=== PATIENT | male | born 1975 | race Caucasian/White ===

== ENCOUNTER 2017-05-11 08:46 | Observation (INO) ==
[2017-05-11] MEDS ORDERED: Nitroglycerin 0.4 MG TAB.SUBL SL ONE (08:57)
[2017-05-11] MEDS ORDERED: Aspirin 81 MG TAB.CHEW PO ONE (08:57)
[2017-05-11 09:32] LABS: Basophils # 0.1 K/mcL (0.0-0.2); Basophils % 0.7 %; Eosinophils # 0.2 K/mcL (0.0-0.6); Eosinophils % 2.7 %; Hematocrit 44.7 % (37.5-50.1); Hemoglobin 14.3 g/dL (12.9-16.9); Immature Granulocytes % 0.4 % (0-4); Lymphocytes # 2.3 K/mcL (0.6-4.6); Lymphocytes % 31.3 %; Mean Corpuscular Hemoglobin 27.1 pg (28.0-33.3); Mean Corpuscular Volume 84.8 fL (83.0-100.0); Mean Platelet Volume 9.8 fL (9.4-12.4); Monocytes # 0.7 K/mcL (0.0-1.3); Monocytes % 8.8 %; Neutrophils # 4.1 K/mcL (1.6-8.9); Platelet Count 260 K/mcL (140-400); Red Blood Count 5.27 M/mcL (4.19-5.50); Red Cell Distribution Width 12.7 % (11.5-14.5); Segmented Neutrophils % 56.1 %
[2017-05-11 09:38] LABS: Calcium 9.6 mg/dL (8.6-10.3); Carbon Dioxide 27 mEq/L (23-29); Chloride 105 mEq/L (98-107); Potassium 3.9 mEq/L (3.5-5.1); Sodium 140 mEq/L (136-145)
[2017-05-11 09:43] LABS: BUN/Creatinine Ratio 22 (6-26); Blood Urea Nitrogen 22 mg/dL (6-20); Glucose 93 mg/dL (70-105); Osmolality,Calculated 293 (280-300); eGFR For African Americans > 60 (> 60); eGFR For Non-African Americans > 60 (> 60)
[2017-05-11 09:46] LABS: INR 1.1; Prothrombin Time 11.6 Seconds (9.4-12.1)
[2017-05-11 09:49] LABS: Activated Partial Thrombo Time 33.1 Seconds (26.0-36.0)
--- NOTE | 2017-05-11 09:56 | Emergency Department Note ---
Disposition Clinical Impression: Chest pain, rule out acute myocardial infarction Disposition: Admitted As Inpatient Condition: Fair Referrals: Nehemiah Abdi DO [Primary Care Provider] - Forms: ED Satisfaction Letter Time of Disposition: 10:49 Chest Pain HPI - General Chief Complaint: ED Chest Pain Stated Complaint: chest heaviness, L arm pain Time Seen by Provider: 05/11/17 08:56 Source: patient Limitations: no limitations Vital Signs Reviewed: Yes Nursing Notes Reviewed: Yes - History of Present Illness HPI Narrative: Alert and oriented and nontoxic-appearing 42-year-old male presents for evaluation of epigastric, substernal, and left-sided chest "pressure" that radiates into the left upper arm. Symptoms began 3 days ago and have been intermittent since. He describes this pressure as a sensation of heaviness. He denies any pain with inspiration. He denies any shortness of breath, nausea , vomiting, or diaphoresis. He denies any cough, sputum, or hemoptysis. He denies any lower extremity pain or swelling. He denies any known personal cardiac history but states a strong familial cardiac history on his father's side. He denies any known aggravating or alleviating factors for this pain. Pt complaint: chest pain Onset (ago): day(s) (3) Duration: intermittent Pain Location: substernal, left chest, epigastric Severity: mild Severity scale (1-10): 2 Quality: heaviness Pain Radiation: LUE Improves with: nothing Worsens with: nothing Associated symptoms: Denies: nausea, vomiting, diaphoresis, dyspnea, syncope, palpitations, fever, cough, leg swelling Treatments prior to arrival chest pain: none - Related Data Home Medications Medication Instructions Recorded Confirmed Lisinopril [Zestril] 10 mg PO DAILY 05/11/17 05/11/17 Omeprazole [PriLOSEC] 20 mg PO BIDAC 05/11/17 05/11/17 Allergies Allergy/AdvReac Type Severity Reaction Status Date / Time nut - unspecified [nut] Allergy Rash Verified 05/11/17 08:54 shrimp Allergy Rash Verified 05/11/17 08:54 All systems ED: reviewed and negative except as stated. Constitutional: Denies: fever, chills, weakness, weight change Eyes: Denies: eye pain, eye discharge, vision change ENT ED: Denies: ear pain, throat pain, dental pain, hearing loss, epistaxis, congestion, dysphagia Cardiovascular: Reports: as per HPI, chest pain. Denies: palpitations, dyspnea on exertion, edema, syncope Respiratory: Denies: cough, dyspnea, wheezes, hemoptysis, stridor Gastrointestinal: Denies: abdominal pain, nausea, vomiting, diarrhea, constipation, hematemesis, melena, hematochezia Genitourinary: Denies: urgency, dysuria, frequency, hematuria Musculoskeletal: Denies: back pain, neck pain, arthralgia, myalgia Integumentary: Denies: rash, abrasion, lesions Neurological: Denies: headache, weakness, numbness, paresthesias, confusion, abnormal gait, vertigo Psychiatric: Denies: anxiety, depression, suicidal thoughts, homicidal thoughts , auditory hallucinations, visual hallucinations Endocrine: Denies: fatigue Hematological/Lymphatic: Denies: easy bleeding, easy bruising Allergic/Immunologic: Denies: facial swelling, urticaria Chest Pain PMH - Past Medical History Medical history: Reports: GERD, hypertension Psychiatric history: Reports: no psych history - Social History Smoking Status: Never smoker Alcohol use: Reports: rarely Drug use: Reports: none Physical Exam - General Limitations: no limitations General appearance: alert, in no apparent distress - Head Head exam: atraumatic, normocephalic, normal inspection - Eye Eye exam: Present: normal appearance, PERRL, EOMI. Absent: nystagmus - ENT ENT exam: mucous membranes moist - Neck Neck exam: Present: normal inspection, full ROM, trachea midline - Chest Chest inspection: Present: normal inspection, symmetric chest wall rise. Absent : tenderness - Respiratory Respiratory exam: Present: normal lung sounds bilaterally. Absent: respiratory distress, wheezes, stridor, accessory muscle use, prolonged expiratory phase - Cardiovascular Cardiovascular exam: Present: regular rate, normal rhythm, normal heart sounds - Abdominal Exam Abdominal exam: Present: soft, Non-Tender, normal bowel sounds - Extremities Exam Extremities exam: Present: normal inspection, full ROM, tenderness. Absent: pedal edema - Neurological Exam Neurological exam: Present: alert, oriented X3 - Psychiatric Psychiatric exam: Present: normal affect, normal mood - Skin Skin exam: Present: warm, dry, intact, normal color Course Course Narrative: 1048: I spoke with Dr. Saha of the hospital service. Dr. Saha has accepted the patient for admission to their care for further evaluation and treatment of the patient's complaint of chest pain. - Reevaluation(s) Reevaluation #1: The patient stated complete resolution of chest pain and pressure after the administration of a single nitroglycerin tablet. Time: 09:58 Vital Signs Temperature 97.8 F 05/11/17 08:49 Pulse Rate 64 05/11/17 08:49 Respiratory Rate 18 05/11/17 08:49 Blood Pressure 133/93 05/11/17 08:49 O2 Sat by Pulse Oximetry 100 05/11/17 08:49 Temperature 97.8 F 05/11/17 08:49 Pulse Rate 64 05/11/17 08:49 Respiratory Rate 18 05/11/17 08:49 Blood Pressure 133/93 05/11/17 08:49 O2 Sat by Pulse Oximetry 100 05/11/17 08:49 Oxygen Delivery Oxygen Delivery Room Air Chest Pain - Medical Records Medical records reviewed: Yes I reviewed the patient's medical records. - Lab Data Lab results reviewed: Yes I reviewed the patient's lab results. Lab results narrative: Lab Results 05/11/17 05/11/17 05/11/17 Range/Units 09:07 09:07 09:07 WBC 7.4 (4.3-11.1) K/mcL RBC 5.27 (4.19-5.50) M/mcL Hgb 14.3 (12.9-16.9) g/dL Hct 44.7 (37.5-50.1) % MCV 84.8 (83.0-100.0) fL MCH 27.1 L (28.0-33.3) pg MCHC 32.0 (31.6-35.5) g/dL RDW 12.7 (11.5-14.5) % Plt Count 260 (140-400) K/mcL MPV 9.8 (9.4-12.4) fL Immature Gran % 0.4 (0-4) % Seg Neutrophils % 56.1 % Lymphocytes % 31.3 % Monocytes % 8.8 % Eosinophils % 2.7 % Basophils % 0.7 % Neutrophils # 4.1 (1.6-8.9) K/mcL Lymphocytes # 2.3 (0.6-4.6) K/mcL Monocytes # 0.7 (0.0-1.3) K/mcL Eosinophils # 0.2 (0.0-0.6) K/mcL Basophils # 0.1 (0.0-0.2) K/mcL PT 11.6 (9.4-12.1) Seconds INR 1.1 APTT 33.1 (26.0-36.0) Seconds Sodium 140 (136-145) mEq/L Potassium 3.9 (3.5-5.1) mEq/L Chloride 105 (98-107) mEq/L Carbon Dioxide 27 (23-29) mEq/L BUN 22 H (6-20) mg/dL Creatinine 0.98 (0.70-1.30) mg/dL Est GFR ( Amer) > 60 (> 60) Est GFR (Non-Af Amer) > 60 (> 60) BUN/Creatinine Ratio 22 (6-26) Glucose 93 (70-105) mg/dL Calculated Osmolality 293 (280-300) Calcium 9.6 (8.6-10.3) mg/dL Troponin I (< 0.04) ng/mL 05/11/17 Range/Units 09:07 WBC (4.3-11.1) K/mcL RBC (4.19-5.50) M/mcL Hgb (12.9-16.9) g/dL Hct (37.5-50.1) % MCV (83.0-100.0) fL MCH (28.0-33.3) pg MCHC (31.6-35.5) g/dL RDW (11.5-14.5) % Plt Count (140-400) K/mcL MPV (9.4-12.4) fL Immature Gran % (0-4) % Seg Neutrophils % % Lymphocytes % % Monocytes % % Eosinophils % % Basophils % % Neutrophils # (1.6-8.9) K/mcL Lymphocytes # (0.6-4.6) K/mcL Monocytes # (0.0-1.3) K/mcL Eosinophils # (0.0-0.6) K/mcL Basophils # (0.0-0.2) K/mcL PT (9.4-12.1) Seconds INR APTT (26.0-36.0) Seconds Sodium (136-145) mEq/L Potassium (3.5-5.1) mEq/L Chloride (98-107) mEq/L Carbon Dioxide (23-29) mEq/L BUN (6-20) mg/dL Creatinine (0.70-1.30) mg/dL Est GFR ( Amer) (> 60) Est GFR (Non-Af Amer) (> 60) BUN/Creatinine Ratio (6-26) Glucose (70-105) mg/dL Calculated Osmolality (280-300) Calcium (8.6-10.3) mg/dL Troponin I < 0.03 (< 0.04) ng/mL Result diagrams: 05/11/17 09:07 05/11/17 09:07 Lab Results 05/11/17 05/11/17 05/11/17 Range/Units 09:07 09:07 09:07 WBC 7.4 (4.3-11.1) K/mcL RBC 5.27 (4.19-5.50) M/mcL Hgb 14.3 (12.9-16.9) g/dL Hct 44.7 (37.5-50.1) % MCV 84.8 (83.0-100.0) fL MCH 27.1 L (28.0-33.3) pg MCHC 32.0 (31.6-35.5) g/dL RDW 12.7 (11.5-14.5) % Plt Count 260 (140-400) K/mcL MPV 9.8 (9.4-12.4) fL Immature Gran % 0.4 (0-4) % Seg Neutrophils % 56.1 % Lymphocytes % 31.3 % Monocytes % 8.8 % Eosinophils % 2.7 % Basophils % 0.7 % Neutrophils # 4.1 (1.6-8.9) K/mcL Lymphocytes # 2.3 (0.6-4.6) K/mcL Monocytes # 0.7 (0.0-1.3) K/mcL Eosinophils # 0.2 (0.0-0.6) K/mcL Basophils # 0.1 (0.0-0.2) K/mcL PT 11.6 (9.4-12.1) Seconds INR 1.1 APTT 33.1 (26.0-36.0) Seconds Sodium 140 (136-145) mEq/L Potassium 3.9 (3.5-5.1) mEq/L Chloride 105 (98-107) mEq/L Carbon Dioxide 27 (23-29) mEq/L BUN 22 H (6-20) mg/dL Creatinine 0.98 (0.70-1.30) mg/dL Est GFR ( Amer) > 60 (> 60) Est GFR (Non-Af Amer) > 60 (> 60) BUN/Creatinine Ratio 22 (6-26) Glucose 93 (70-105) mg/dL Calculated Osmolality 293 (280-300) Calcium 9.6 (8.6-10.3) mg/dL Troponin I (< 0.04) ng/mL 05/11/17 Range/Units 09:07 WBC (4.3-11.1) K/mcL RBC (4.19-5.50) M/mcL Hgb (12.9-16.9) g/dL Hct (37.5-50.1) % MCV (83.0-100.0) fL MCH (28.0-33.3) pg MCHC (31.6-35.5) g/dL RDW (11.5-14.5) % Plt Count (140-400) K/mcL MPV (9.4-12.4) fL Immature Gran % (0-4) % Seg Neutrophils % % Lymphocytes % % Monocytes % % Eosinophils % % Basophils % % Neutrophils # (1.6-8.9) K/mcL Lymphocytes # (0.6-4.6) K/mcL Monocytes # (0.0-1.3) K/mcL Eosinophils # (0.0-0.6) K/mcL Basophils # (0.0-0.2) K/mcL PT (9.4-12.1) Seconds INR APTT (26.0-36.0) Seconds Sodium (136-145) mEq/L Potassium (3.5-5.1) mEq/L Chloride (98-107) mEq/L Carbon Dioxide (23-29) mEq/L BUN (6-20) mg/dL Creatinine (0.70-1.30) mg/dL Est GFR ( Amer) (> 60) Est GFR (Non-Af Amer) (> 60) BUN/Creatinine Ratio (6-26) Glucose (70-105) mg/dL Calculated Osmolality (280-300) Calcium (8.6-10.3) mg/dL Troponin I < 0.03 (< 0.04) ng/mL - Radiology Data Radiology results reviewed: Yes I reviewed the patient's radiology results. Chest X-Ray 05/11/17 08:57 IMPRESSION: No acute cardiopulmonary findings. D/ / Michell Sanchez MD / Michell Sanchez MD Interpreting Provider: Michell Sanchez MD - EKG Data EKG attestation: Yes I reviewed and interpreted this EKG. EKG results narrative: EKG reviewed by Dr. Kilpatrick as well. EKG shows a sinus rhythm at a rate of [address] interval 158, QRS duration 108, QT/QTc interval 393/403. No ectopy noted. No STEMI. No significant changes when compared to an EKG dated from . Heart Score - Score History: Moderately Suspicious EKG: Normal Age: Less than 45 Risk Factors: 1-2 risk factors Troponin: Less than normal limit HEART Score Total: 2
--- NOTE | 2017-05-11 10:29 | Electrocardiograph Report ---
[facility] Test Date: 2017-05-11 Pat Name: Tyler Holder Department: 102 Room: Gender: M Lan Support Specialist: Miya : 1975 Requested By: Sumeet Reid Order Number: [id number] Reading MD: Yeison Parker MD Measurements Intervals [place] Rate: 64 P: 37 CA: 158 QRS: 90 QRSD: 108 T: 47 QT: 393 QTc: 403 Interpretive Statements SINUS RHYTHM Electronically Signed On 05-11-2017 10:28:15 EST by Yeison Parker MD
[2017-05-11] MEDS ORDERED: Acetaminophen 325 MG TABLET PO PRN (11:06)
--- NOTE | 2017-05-11 11:11 | Internal Med History&Physical ---
Date of Encounter: 05/11/17 Time of Encounter: 11:10 Assessment and Plan (1) Essential hypertension Current visit: Yes Status: Acute Continue lisinopril (2) GERD (gastroesophageal reflux disease) Current visit: Yes Status: Acute Continue omeprazole Qualifiers: Esophagitis presence: without esophagitis Qualified Code(s): K21.9 - Gastro -esophageal reflux disease without esophagitis (3) DVT prophylaxis Current visit: Yes Status: Acute Encourage ambulation (4) Chest pain, rule out acute myocardial infarction Current visit: Yes Status: Acute Atypical chest pain in a patient with positive family history. Plan: Observation. Telemetry. Trend troponin. We will obtain stress test and echocardiogram in the morning. Internal Medicine - H&P: HPI Chief complaint: Chest pain Admitted From: Emergency Dept Plans for Post Hospital Care: Home History of present illness: Mr. Holdre is a 42 year old male with past medical history significant for hypertension and GERD who presents to the hospital for evaluation of chest pain. Patient describes left upper arm pain, moderate severity, aching that started at 6 PM yesterday, nonexertional not changed with movement, on and off, associated with chest discomfort described as heavy breathing. He presented to the emergency department today. Initial workup was negative. A 10 point review of systems was negative except as above. Family history: Patient's father suffered with HI at age 52, multiple other family members on father's side suffered with CAD. Social history: Denies tobacco alcohol and drug use. He has an active lifestyle. He works as a product safety officer. Past Med Surg Social Fam HX - Past Medical History Medical history: GERD, hypertension Psychiatric history: no psych history - Social History Smoking Status: Never smoker Smokeless Tobacco Status: No Alcohol use: rarely Drug use: none Internal Medicine - H&P: Meds Lisinopril [Zestril] 10 mg PO DAILY 05/11/17 [History] Omeprazole [PriLOSEC] 20 mg PO BIDAC 05/11/17 [History] 3 Allergy/AdvReac Type Severity Reaction Status Date / Time nut - unspecified [nut] Allergy Rash Verified 05/11/17 08:54 shrimp Allergy Rash Verified 05/11/17 08:54 All Systems PM: A 10-system review of systems was performed and is negative for pertinent findings except as documented above in the HPI. - Constitutional Vitals: Temp Pulse Resp BP Pulse Ox 97.8 F 64 18 133/93 100 05/11/17 08:49 05/11/17 08:49 05/11/17 08:49 05/11/17 08:49 05/11/17 08:49 General appearance: Present: A&O X 3, no acute distress - Eye Eye exam: Present: PERRL, conjuntiva pink, sclera anicteric Pupils: Present: PERRL - Respiratory Respiratory exam: Present: CTAB. Absent: accessory muscle use, rales, rhonchi, wheezes - Cardiovascular Cardiovascular exam: Present: RRR, +S1, +S2. Absent: diastolic murmur, gallop, rubs, systolic murmur - GI/Abdominal GI/Abdominal exam: Present: normal bowel sounds, soft, no peritoneal signs. Absent: distended, tenderness - Extremities Exam Extremities exam: Present: warm, radial pulses palpable and symmetrical. Absent : calf tenderness, cyanotic, pedal edema - Skin Skin exam: Present: dry, intact Internal Med - H&P Results - Labs CBC & Chem 7: 05/11/17 09:07 05/11/17 09:07 - EKG Data -: EKG Interpreted by Myself EKG shows normal: sinus rhythm (64 bpm, normal EKG), axis, intervals, QRS complexes, ST-T waves
[2017-05-11] MEDS ORDERED: Perflutren Lipid Microsphere 1.3 ML in 0.9 % Sodium Chloride 8.7 ML IVP ONE (20:12)
[2017-05-12 03:58] LABS: Basophils # 0.1 K/mcL (0.0-0.2); Basophils % 0.6 %; Eosinophils # 0.3 K/mcL (0.0-0.6); Hematocrit 42.6 % (37.5-50.1); Hemoglobin 13.9 g/dL (12.9-16.9); Immature Granulocytes % 0.5 % (0-4); Lymphocytes # 2.8 K/mcL (0.6-4.6); Lymphocytes % 33.5 %; Mean Corpuscular HGB Conc 32.6 g/dL (31.6-35.5); Mean Corpuscular Hemoglobin 27.4 pg (28.0-33.3); Mean Platelet Volume 9.9 fL (9.4-12.4); Monocytes # 0.7 K/mcL (0.0-1.3); Monocytes % 8.6 %; Neutrophils # 4.5 K/mcL (1.6-8.9); Platelet Count 240 K/mcL (140-400); Red Blood Count 5.07 M/mcL (4.19-5.50); Red Cell Distribution Width 12.8 % (11.5-14.5); Segmented Neutrophils % 53.8 %
[2017-05-12 04:55] LABS: BUN/Creatinine Ratio 21 (6-26); Blood Urea Nitrogen 22 mg/dL (6-20); Calcium 9.3 mg/dL (8.6-10.3); Carbon Dioxide 26 mEq/L (23-29); Chloride 107 mEq/L (98-107); Chol/HDL Ratio 4.4 (0-4.9); Cholesterol 164 mg/dL (< 200); Glucose 109 mg/dL (70-105); HDL Cholesterol 37 mg/dL (40-59); LDL Cholesterol,Calculated 105 mg/dL (0-99); Magnesium 1.9 mg/dL (1.6-2.6); Osmolality,Calculated 296 (280-300); Potassium 4.3 mEq/L (3.5-5.1); Sodium 141 mEq/L (136-145); Triglycerides 109 mg/dL (< 150); eGFR For African Americans > 60 (> 60); eGFR For Non-African Americans > 60 (> 60)
[2017-05-12] MEDS ORDERED: Aspirin Enteric Coated 81 MG Tablet PO SCH (09:00)
[2017-05-12 12:09] VITALS: BP 138/84
--- NOTE | 2017-05-12 15:32 | Discharge Summary ---
Date of Encounter: 05/12/17 Time of Encounter: 10:15 - Discharge Diagnosis (1) Chest pain, rule out acute myocardial infarction Priority: Secondary Status: Acute Comments: Pt reports onset of left arm/left shoulder heaviness 4 days ago. 2 days ago, pt began having heavy breathing, denies difficulty breathing or new cough, chills, fevers. Denies chest pain since being in the ER. Pt feels that pain was relieved by NTG in the ED. He denies chest pain or radiation of arm heaviness. Denies loss of use of arm or decreased ROM, numbness or tingling. STates that all symptoms have resolved. Patient is a nonsmoker, denies alcohol, smokeless tobacco, or recreational drugs. He is tender to palpation in the epigastric area, but denies burning sensation to chest or vomiting. Echo shows LVEF 60-65% and no significant valvular dysfunction. Stress test was negative for ischemia or infarct with a gated EF of greater than 70%. Chest x-ray was negative. EKG was sinus rhythm without ST changes. Rate was 64 , NM interval 158, QRS 108 QTC 403. Patient is most likely related to reflux symptoms. We discussed lifestyle modifications including eating smaller, more frequent meals, avoiding spicy, fatty, fried foods. We discussed weight loss and increasing exercise, as well as not lying down for a few hours after eating. Patient needs to follow-up with primary care for continued evaluation. (2) Essential hypertension Priority: Secondary Status: Chronic Comments: Chronic. Continue home medications. (3) GERD (gastroesophageal reflux disease) Priority: Secondary Status: Acute Comments: Pt reports GERD with some increasing symptoms recently. Potential cause of left arm and shoulder pain. Pt denies n/v/d at time of incident, states that arm heaviness has stopped. Continue BID PPI, diet modifications Qualifiers: Esophagitis presence: without esophagitis Qualified Code(s): K21.9 - Gastro -esophageal reflux disease without esophagitis (4) Obesity (BMI 30.0-34.9) Priority: Secondary Status: Chronic Comments: Chronic. Lifestyle modifications. (5) DVT prophylaxis Priority: Secondary Status: Acute Comments: Pt has been ambulatory - Discharge Medications Home Medications: Lisinopril [Zestril] 10 mg PO DAILY 05/11/17 [History] Omeprazole [PriLOSEC] 20 mg PO BIDAC 02/16/18 [History] Allergies/Adverse Reactions: 3 Allergy/AdvReac Type Severity Reaction Status Date / Time nut - unspecified [nut] Allergy Rash Verified 05/11/17 08:54 shrimp Allergy Rash Verified 05/11/17 08:54 Procedures/tests Complete & Pending: Procedures Performed prior 72 hours Category Date Time Status NM marco antonio perf SPECT multi [NM] Routine Exams 05/12/17 06:30 Taken EV echocardiogram w enhance Routine Y 05/11/17 12:08 Completed SP exercise nuclear stress Routine Y 05/12/17 Completed Date of admission: 05/11/17 11:07 Primary care physician: Nehemiah Abdi, Discharging clinician: Loulou Mir Anticipated date of discharge: 05/12/17 - Patient Status Disposition: Home, Self-Care Condition: Good Functional capacity at discharge: independent ambulation Overall status at discharge: patient is back to baseline - Discharge Instructions Follow Up With: Nehemiah Abdi, [Primary Care Provider] - Additional Instructions: Please follow up with your primary care provider in the next 7-10 days for recheck. Please return to the emergency department as needed for any other problems or concerns, or if symptoms return or worsen. Resume your normal home medications. Change your diet and lifestyle, include exercise, smaller, more frequent meals. Avoid spicy, greasy, fatty, fried foods. Resume your normal activities as tolerated. - Diet and Activity Activity: increase activity as tolerated Diet: advance to your usual diet, low fat, low cholesterol, low salt diet Hospital course: Mr. Holder is a 42 year old male with past medical history of hypertension and GERD. No reported to the emergency room after 4 day history of left shoulder and arm heaviness, 2 day history of heavy breathing. Patient denies chest pain , nausea, vomiting, diaphoresis. There is no change in the pain of the shoulder with movement or inspiration. He denies fever, chills, rigors, productive cough. Patient states that pain was relieved while he was in the emergency room, states he believes it was after nitroglycerin is when he began feeling like he was breathing easier, he had not no arm pain for the entire day prior to arrival. EKG was normal sinus rhythm without any ST changes, troponins are negative, stress was negative for ischemia or infarct, echocardiogram with preserved ejection fraction and no valvular dysfunction. Patient is having no pain or any other symptoms. Vitals are stable, labs are stable and within normal limits. He is appropriate for discharge. - Time Spent with Patient Total time spent providing and/or coordinating discharge services: Less than 30 minutes - Constitutional Vitals: Temp Pulse Resp BP Pulse Ox 98.4 F 89 16 138/84 97 05/12/17 12:08 05/12/17 12:08 05/12/17 12:08 05/12/17 12:08 05/12/17 12:08 General appearance: Present: A&O X 3, pleasant, no acute distress, answers questions appropriately - Head Head exam: Present: atraumatic, normal inspection, normocephalic - Eye Eye exam: Present: normal appearance, conjuntiva pink, sclera anicteric - Neck Neck exam general surgery: Present: normal inspection, supple, trachea midline. Absent: lymphadenopathy, tenderness - Respiratory Respiratory exam: Present: CTAB. Absent: accessory muscle use, rales, rhonchi, wheezes - Cardiovascular Cardiovascular exam: Present: RRR, +S1, +S2. Absent: diastolic murmur, gallop, rubs, systolic murmur - GI/Abdominal GI/Abdominal exam: Present: normal bowel sounds, soft. Absent: distended, tenderness - Extremities Exam Extremities exam: Present: normal capillary refill, normal inspection, warm, radial pulses palpable and symmetrical. Absent: calf tenderness, cyanotic, pedal edema, tenderness - Neurological Exam Neurological exam: Present: alert, oriented X3, no focal deficits. Absent: facial droop, speech deficit - Skin Skin exam: Present: dry, intact, normal color, warm. Absent: rash
== END 2017-05-12 16:32 | disposition home or self-care (01) ==
LOC: 3BNU 08:46 → EMEROO 08:46 → 3BNU 11:58
PROVIDERS: ADMIT Internal Medicine; ATTEND Registered Nurse